=== PATIENT | female | born 1995 | race African-American/Black ===

== ENCOUNTER 2020-07-29 11:25 | Emergency (ER) | payer OTHER ==
[~2020-07-29] VITALS: Ht 170.2 cm; Wt 76.2 kg
[2020-07-29 11:31] VITALS: BP 130/75
--- NOTE | 2020-07-29 11:34 | NUR ---
PT TAKEN TO BED 4.
--- NOTE | 2020-07-29 11:37 | NUR ---
25 y/o female from home c/o left knee and right rib cage pain since yesterday. Pt states [place] on [place] and [place]. Pt states she felt knee pop and has had increased pain. No deformities noted. Pt able to ambulate with limp. +cms, + pulses. medhx: denies allergies: NSAIDS
--- NOTE | 2020-07-29 11:49 | NUR ---
X-Ray at bedside.
--- NOTE | 2020-07-29 11:51 | NUR ---
Dr Gallego at bedside examining pt
[2020-07-29 12:14] VITALS: BP 130/75
--- NOTE | 2020-07-29 12:14 | NUR ---
Patient discharged with v/s stable. Written and verbal after care instructions given and explained. Patient alert, oriented and verbalized understanding of instructions. Ambulatory with steady gait. All questions addressed prior to discharge. ID band removed. Patient advised to follow up with PMD. Rx of [place] 5mg-325mg given. Patient educated on indication of medication including possible reaction and side effects. Opportunity to ask questions provided and answered.
== END 2020-07-29 12:14 | disposition home or self-care (01) ==
LOC: MED 11:25
DX: S83.92XA Sprain of unspecified site of left knee, initial encounter (principal); S20.20XA Contusion of thorax, unspecified, initial encounter; Z88.8 Allergy status to other drugs, medicaments and biological substances; Z98.890 Other specified postprocedural states; W50.0XXA Accidental hit or strike by another person, initial encounter; Y93.89 Activity, other specified; Y92.89 Other specified places as the place of occurrence of the external cause; Y99.8 Other external cause status
CPT/HCPCS: 73562; 81025; 99283; Q0092

== ENCOUNTER 2020-10-31 18:07 | Emergency (ER) | payer OTHER ==
[~2020-10-31] VITALS: Ht 170.2 cm; Wt 76.7 kg
[2020-10-31 18:35] VITALS: BP 128/79
--- NOTE | 2020-10-31 18:43 | NUR ---
BIB SISTER C/O LOSS OF TASTE/SMELL X 2 DAYS. PMH: DENIES
--- NOTE | 2020-10-31 18:45 | NUR ---
TENT 1
[2020-10-31 19:00] VITALS: BP 128/79
--- NOTE | 2020-10-31 19:25 | NUR ---
PATIENT ELOPED FROM FACILITY. DISCHARGE INSTRUCTIONS NOT GIVEN TO PATIENT. DR. WESLEY NOTIFIED.
== END 2020-10-31 19:25 | disposition left against medical advice (07) ==
LOC: MED 18:07
DX: R43.9 Unspecified disturbances of smell and taste (principal); Z53.21 Procedure and treatment not carried out due to patient leaving prior to being seen by health care provider